=== PATIENT | female | born 1930 | race Native Hawaiian/Other Pacific Islander ===

== ENCOUNTER 2019-10-08 15:46 | Emergency (ER) | payer OTHER ==
[~2019-10-08] VITALS: Ht 165.1 cm; Wt 79.4 kg
[2019-10-08 15:56] VITALS: BP 143/64; TEMP 98.2
== END 2019-10-08 16:50 | disposition home or self-care (01) ==
LOC: ED 15:46
DX: F41.1 Generalized anxiety disorder (principal)
CPT/HCPCS: 93005; 96372; 99283; J2060